=== PATIENT | male | born 1965 | race Caucasian/White ===

== ENCOUNTER 2024-06-29 12:22 | Emergency (ER) | payer BC ==
[2024-06-29 13:09] LABS: BASOPHILS ABSOLUTE AUTO 0.03 K/uL (0.00-0.20); BASOPHILS PERCENT AUTO 0.4 % (0.0-2.0); EOSINOPHILS ABSOLUTE AUTO 0.19 K/uL (0.00-0.50); EOSINOPHILS PERCENT AUTO 2.5 % (0.0-5.0); HEMOGLOBIN 17.1 g/dL (13.1-16.8); IMMATURE GRAN ABSOLUTE AUTO 0.02 10^3/uL (0.00-0.04); IMMATURE GRAN PERCENT AUTO 0.3 % (0.0-0.4); LYMPHOCYTES ABSOLUTE AUTO 1.83 K/uL (0.50-3.50); LYMPHOCYTES PERCENT AUTO 24.1 % (10.0-50.0); MEAN CORPUSCULAR HEMOGLOBIN 30.3 pg (28.2-33.3); MEAN CORPUSCULAR HGB CONC 35.6 g/dL (31.7-36.0); MEAN CORPUSCULAR VOLUME 85.1 fL (84.0-98.0); MONOCYTES ABSOLUTE AUTO 0.58 K/uL (0.00-1.00); MONOCYTES PERCENT AUTO 7.6 % (2.0-14.0); NEUTROPHILS ABSOLUTE AUTO 4.94 K/uL (1.40-7.00); NEUTROPHILS PERCENT AUTO 65.1 % (45.0-80.0); PLATELET COUNT,PLT 181 K/uL (150-350); RED BLOOD CELL COUNT 5.64 M/uL (4.33-5.41); RED CELL DISTRIBUTION WIDTH 12.2 % (11.2-14.1); WHITE BLOOD CELL COUNT,WBC 7.6 K/uL (4.0-10.2)
[2024-06-29] MEDS: Aluminum Hydroxide/Magnesium Hydroxide/Simethicone Susp 30 ML Cup PO ONE (13:42)
[2024-06-29] MEDS: Lidocaine 2% Viscous Solution 15 ML UD PO ONE (13:42)
[2024-06-29] MEDS ORDERED: Naloxone 0.4 MG/ML SDV IVPUSH PRN (13:45)
[2024-06-29] MEDS: Ondansetron 4 MG/2 ML SDV IVPUSH ONE (13:51)
[2024-06-29 13:54] LABS: ALANINE AMINOTRANSFERASE,ALT 72 U/L (12-78); ALBUMIN 4.3 g/dL (3.4-5.0); ALKALINE PHOSPHATASE 76 IU/L (46-116); ANION GAP 12.7 meq/L (7-15); ASPARTATE AMNIOTRANSFERASE,AST 31 U/L (15-37); BILIRUBIN TOTAL 0.6 mg/dL (0.2-1.0); BLOOD UREA NITROGEN,BUN 13 mg/dL (7-18); CALCIUM 9.4 mg/dL (8.5-10.1); CARBON DIOXIDE,CO2 25.7 mmol/L (21.0-32.0); CHLORIDE,CL 104 mmol/L (98-107); CREATININE 1.14 mg/dL (0.51-1.17); ESTIMATED GFR 74 mL/min (>=60); GLUCOSE RANDOM 177 mg/dL (70-99); MAGNESIUM 2.2 mg/dL (1.8-2.4); POTASSIUM,K 3.4 mmol/L (3.5-5.1); PROTEIN TOTAL,TP 7.4 g/dL (6.4-8.2); SODIUM,NA 139 mmol/L (136-145)
[2024-06-29] MEDS: Sodium Chloride 0.9% 10 ML Syringe FLUSH PRN (13:54)
[2024-06-29] MEDS: Ketorolac 15 MG/ML SDV IVPUSH ONE (13:55)
[2024-06-29] MEDS: Morphine 2 MG/ML SYRINGE IVPUSH ONE (14:01)
[2024-06-29] MEDS: Iopamidol 612 MG/ML 100 ML Bottle IVPUSH ONE (14:25)
[2024-06-29 16:00] LABS: APPEARANCE,URINE CLEAR; BILIRUBIN,URINE NEGATIVE (NEGATIVE); COLOR,URINE YELLOW; GLUCOSE,URINE NEGATIVE (NEGATIVE); KETONES,URINE 15 mg/dL (NEGATIVE); LEUKOCYTE ESTERASE,URINE NEGATIVE (NEGATIVE); NITRITE,URINE NEGATIVE (NEGATIVE); OCCULT BLOOD,URINE NEGATIVE (NEGATIVE); PH,URINE 6.5 (5.0-9.0); PROTEIN,URINE TRACE mg/dL (NEGATIVE); UROBILINOGEN,URINE 0.2 E.U./dL (0.2-1.0)
[2024-06-29 16:47] LABS: BACTERIA,URINE NOT SEEN /HPF (NONE TO FEW); EPITHELIAL CELLS,URINE NOT SEEN /LPF; MUCUS,URINE NOT SEEN /LPF (NEGATIVE); RBC,URINE 0-5 /HPF; WBC,URINE NOT SEEN /HPF
[2024-06-29] MEDS: methylPREDNISolone Sodium Succinate 125 MG/2 ML SDV IVPUSH ONE (16:54)
[2024-06-29] MEDS: Take Home: oxyCODONE HCl 5 MG Tab, 5 Tab Pack PO ONE (17:03)
== END 2024-06-29 17:35 | disposition home or self-care (01) ==
LOC: LL.ED 12:22
DX: K52.9 Noninfective gastroenteritis and colitis, unspecified (principal); E11.9 Type 2 diabetes mellitus without complications; F17.210 Nicotine dependence, cigarettes, uncomplicated; Z79.899 Other long term (current) drug therapy
CPT/HCPCS: 36415; 74022; 74177; 80053; 80143; 81001; 83605; 83690; 83735; 84484; 85025; 96374; 96375; 99284-25; A9270-GY; J1885; J2270; J2405; J2919; Q9967

== ENCOUNTER 2024-07-06 05:05 | Emergency (ER) | payer BC ==
[2024-07-06] MEDS ORDERED: Naloxone 0.4 MG/ML SDV IVPUSH PRN (05:50)
[2024-07-06] MEDS: Ketorolac 30 MG/ML SDV IM ONE (05:59)
[2024-07-06] MEDS: Morphine 4 MG/ML Syringe IM ONE (05:59)
== END 2024-07-06 06:22 | disposition home or self-care (01) ==
LOC: LL.ED 05:05
DX: K08.89 Other specified disorders of teeth and supporting structures (principal); E11.9 Type 2 diabetes mellitus without complications; F17.210 Nicotine dependence, cigarettes, uncomplicated; Z88.8 Allergy status to other drugs, medicaments and biological substances; Z79.899 Other long term (current) drug therapy
CPT/HCPCS: 96372; 99283; J1885; J2270